=== PATIENT | male | born 1995 | race Two or more races ===

== ENCOUNTER 2016-11-14 15:59 | Emergency (ER) | payer MEDICAID ==
[~2016-11-14] VITALS: Ht 182.9 cm; Wt 70.3 kg
[2016-11-14] MEDS ORDERED: Bacitracin Oint UD TOPIC ONE (17:00)
[2016-11-14] MEDS ORDERED: TdaP Vaccine 0.5ml Syr IM ONE (17:00)
[2016-11-14] MEDS ORDERED: Lidocaine 1% MPF 10mg/ml 5ml INJ ONE (17:00)
[2016-11-14 17:01] VITALS: BP 130/75
[2016-11-14] MEDS ORDERED: BACITRACIN1 APPLIC TOPIC (18:04)
[2016-11-14] MEDS ORDERED: IBUPROFEN600 MG ORAL (18:04)
[2016-11-14 18:26] VITALS: BP 121/79
--- NOTE | 2016-11-14 18:44 | Emergency Room Report ---
History of Present Illness General Chief Complaint: Laceration Source: Patient Present Illness HPI The patient is a 20-year-old male presenting with left thumb laceration which occurred at work today. The patient states that he was using a knife which slipped. Patient states pain is an 8/10 dull ache it does not radiate from the thumb. Pain worse with touch. The patient denies prior injury to this area. Patient denies numbness or tingling. The patient is unsure of last tetanus shot. Pt denies N, V, F, chills Allergies: Coded Allergies: No Known Allergies (Unverified , 11/14/16) Patient History Past Medical History: see triage record Pertinent Family History: none Reviewed Nursing Documentation: PMH: Agreed, PSxH: Agreed Nursing Documentation-PMH Past Medical History: No Stated History Review of Systems All Other Systems: negative except mentioned in HPI Physical Exam Vital Signs Date Time Temp Pulse Resp B/P Pulse Ox O2 Delivery O2 Flow Rate FiO2 11/14/16 16:21 98.2 76 20 137/78 100 Room Air Sp02 EP Interpretation: reviewed, normal General Appearance: no apparent distress, alert, GCS 15, non-toxic Head: normocephalic, atraumatic Eyes: bilateral eye PERRL, bilateral eye normal inspection Musculoskeletal: back normal, gait/station normal, normal range of motion, non- tender, tender - TTP over the L thumb Neurologic: alert, oriented x3, responsive, motor strength/tone normal, sensory intact, speech normal Psychiatric: judgement/insight normal, memory normal, mood/affect normal, no suicidal/homicidal ideation Skin: no rash, warm/dry, laceration - 3cm linear laceration of the L thumb distal to IPJ of palmar surface Procedures Laceration/Wound Repair Laceration/Wound Repair : Consent: Verbal Wound Location: upper extremity Wound's Depth, Shape: superficial, linear Wound Length (cm): 3 Wound Explored: clean Irrigated w/ Saline (ccs): 200 Betadine Prep?: Yes Anesthesia: 1% Lidocaine Volume Anesthetic (ccs): 4 Wound Debrided: minimal Wound Repaired With: sutures Suture Size/Type: 4:0, proline Number of Sutures: 3 Layer Closure?: No Sterile Dressing Applied?: Yes Splint Applied?: No Sling Applied?: No Patient Tolerated: Well Complications: None Medical Decision Making PA Attestation Dr. Rojo is my supervising physician. Patient management was discussed with my supervising physician Diagnostic Impression: Primary Impression: Finger laceration ER Course The patient is a 20-year-old male presenting with left thumb laceration which occurred at work today. Ddx considered include but not limited to fracture, tendon/ligament injury, avulsion, nerve damage PE: vitals WNL. NAD 3cm linear laceration of the L thumb distal to IPJ of palmar surface. No bleeding. SILT. Full AROM. The wound was irrigated with normal saline and cleaned with betadine. A 27g needle was used to administer 4mL of lidocaine w.o epi for digital block anaesthesia. 3 sutures were placed with 4-0 Prolene. The wound was well approximated and the patient tolerated the procedure well. The wound was then cleaned and bacitracin was applied. Pt is DC'ed home with a prescription for motrin. ER precautions given. Pt will FU with workers compensation. Last Vital Signs Date Time Temp Pulse Resp B/P Pulse Ox O2 Delivery O2 Flow Rate FiO2 11/14/16 18:26 98.6 68 15 121/79 100 Room Air Status: improved Disposition: HOME, SELF-CARE Condition: Improved Scripts Bacitracin (Bacitracin Zinc) 15 Gm Oint...g. 1 APPLIC TOPIC TID, #15 GM Prov: LETITIA ALTMAN 11/14/16 Ibuprofen* (MOTRIN*) 600 Mg Tablet 600 MG ORAL Q8H Y for For Pain, #30 TAB 0 Refills Prov: LETITIA ALTMAN 11/14/16 Patient Instructions: Laceration Care, Adult Additional Instructions: I discussed my findings with the patient. All questions and concerns have been answered. Treatment and medication compliance have been addressed. I advised the patient that they need to follow up with PMD in 7 days for wound check and suture removal. If you are unable to see PMD, return to the ED in 7 days. Return to ED if pain remains or worsens, you notice discharge from the wound, the wound continues to bleed, the suture/s fall out, you notice a fever or chills, or for any reason. Patient is advised to keep the wound clean and apply an antibacterial ointment. Patient verbalized understanding of discharge instructions. LETITIA ALTMAN Nov 14, 2016 18:44
== END 2016-11-14 18:26 | disposition home or self-care (01) ==
LOC: EMR 16:25
DX: S61.012A Laceration without foreign body of left thumb without damage to nail, initial encounter (principal); W26.0XXA Contact with knife, initial encounter; Y93.9 Activity, unspecified; Y99.0 Civilian activity done for income or pay; Z23 Encounter for immunization
CPT/HCPCS: 12002; 90471; 90715; 99284; Z7502